=== PATIENT | female | born 1955 | race African-American/Black ===

== ENCOUNTER 2020-09-01 17:41 | Emergency (ER) | payer OTHER ==
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
[2020-09-01 19:10] VITALS: BP 115/62; TEMP 98.3; O2SAT 98
== END 2020-09-01 18:46 | disposition home or self-care (01) ==
LOC: ER 17:41
DX: S29.012A Strain of muscle and tendon of back wall of thorax, initial encounter (principal); V49.50XA Passenger injured in collision with unspecified motor vehicles in traffic accident, initial encounter; E78.00 Pure hypercholesterolemia, unspecified; Z88.0 Allergy status to penicillin; Z88.3 Allergy status to other anti-infective agents; Z88.5 Allergy status to narcotic agent
CPT/HCPCS: 99283

== ENCOUNTER 2020-12-22 11:51 | Emergency (ER) | payer OTHER ==
--- NOTE | 2020-12-22 12:36 | EDPHYS ---
Physician Documentation [facility] Name: Maria Eugenia Garza Age: 65 yrs Sex: Female : 1955 Arrival Date: 12/22/2020 Time: 11:52 Bed 11 Private MD: ED Physician Jonn Martin HPI: 12/22 17:34 This 65 yrs old Black Female presents to ER via Ambulatory with complaints of Finger jmm Injury. 17:34 Onset: The symptoms/episode began/occurred acutely, 1 day(s) ago. Modifying factors: jmm The symptoms are alleviated by nothing, the symptoms are aggravated by nothing. States she cut her right thumb on a kitchen knife. This occurred over a day ago. Patient is not up-to-date on tetanus immunization and requests to have one.. Historical: - Allergies: 12:00 Erythromycin; vg1 12:00 OPIOID ANALGESICS; vg1 12:00 PENICILLINS; vg1 - Home Meds: 12:00 atorvastatin oral [Active]; vg1 - PMHx: 12:00 High Cholesterol; vg1 - Immunization history:: Adult Immunizations up to date, Client reports receiving the 2nd dose of the Covid vaccine, Last tetanus immunization: > 10 years ago. - Social history:: Smoking status: Patient denies any tobacco usage or history of. ROS: 17:34 Constitutional: Negative for fever, chills, and weight loss, Cardiovascular: Negative jmm for chest pain, palpitations, and edema, Respiratory: Negative for shortness of breath, cough, wheezing, and pleuritic chest pain. 17:34 MS/extremity: Positive for injury or acute deformity. 17:34 All other systems are negative. Exam: 17:34 Constitutional: This is a well developed, well nourished patient who is awake, alert, jmm and in no acute distress. Head/Face: atraumatic. Eyes: EOMI, no conjunctival erythema appreciated ENT: Moist Mucus Membranes Neck: Trachea midline, Supple Chest/axilla: Normal chest wall appearance and motion. Cardiovascular: Regular rate and rhythm. No edema appreciated Respiratory: Normal respirations, no respiratory distress appreciated Abdomen/GI: Non distended, soft Back: Normal ROM 17:34 Skin: Healing laceration noted to the right thumb no active bleeding appreciated, no erythema or purulent drainage appreciated from the wound. 17:34 Neuro: Orientation: is normal, Mentation: is normal, Memory: is normal. 17:34 Psych: Behavior/mood is pleasant, cooperative. Vital Signs: 11:54 BP 130 / 69; Pulse 63; Resp 16; Temp 98.7; Pulse Ox 100% ; Weight 72.57 kg; Height 5 vg1 ft. 6 in. (167.64 cm); Pain 0/10; 11:54 Body Mass Index 25.82 (72.57 kg, 167.64 cm) vg1 MDM: 12:09 Patient medically screened. [facility] 12:35 Data reviewed: vital signs, nurses notes. Counseling: I had a detailed discussion with [facility] the patient and/or guardian regarding: the historical points, exam findings, and any diagnostic results supporting the discharge/admit diagnosis, the need for outpatient follow up, to return to the emergency department if symptoms worsen or persist or if there are any questions or concerns that arise at home. Administered Medications: 13:00 Drug: Tetanus-Diphtheria Toxoid Adult 0.5 ml {Administrative Support Technician: [employer]. Exp: ss 07/29/2022. Lot #: [id number]. } Route: IM; Site: left deltoid; 13:37 Follow up: Response: No adverse reaction ss Disposition: 12/23 05:19 Co-signature as Attending Physician, Jonn Martin MD I agree with the assessment and kdr plan of care. Disposition Summary: 12/22/20 12:36 Discharge Ordered Location: Home [facility] Condition: Stable [facility] Diagnosis - Thumb Laceration [facility] Followup: [facility] - With: Private Physician - When: 2 - 3 days - Reason: Recheck today's complaints, Continuance of care, Re-evaluation by your physician Discharge Instructions: - Discharge Summary Sheet [facility] - Nonsutured Laceration Care [facility] Forms: - Medication Reconciliation Form [facility] - Thank You Letter [facility] - Antibiotic Education [facility] - Prescription Opioid Use [facility] Signatures: Jonn Martin MD MD kdr Mickail, Joel, PA PA Stephanie Orlando RN RN Milla Dhaliwal RN RN vg1 Corrections: (The following items were deleted from the chart) 12/22 12:02 12:00 PMHx: High Cholesterol; vg1 vg1
--- NOTE | 2020-12-22 12:36 | ER ---
Nurse's Notes [facility] Name: Maria Eugenia Garza Age: 65 yrs Sex: Female : 1955 Arrival Date: 12/22/2020 Time: 11:52 Bed 11 Private MD: Diagnosis: Thumb Laceration Presentation: 12/22 11:54 Chief complaint: Patient states: Saturday12/19/20, pt cut right thumb with a kitchen vg1 knife while washing dishes. States wants to get a Tetanus shot. Coronavirus screen: Vaccine status: Patient reports receiving the 2nd dose of the covid vaccine. At this time, the client does not indicate any symptoms associated with coronavirus-19. Ebola Screen: Patient negative for fever greater than or equal to 101.5 degrees Fahrenheit, and additional compatible Ebola Virus Disease symptoms. Initial Sepsis Screen: Does the patient meet any 2 criteria? No. Patient's initial sepsis screen is negative. Does the patient have a suspected source of infection? No. Patient's initial sepsis screen is negative. Risk Assessment: Do you want to hurt yourself or someone else? Patient reports no desire to harm self or others. Onset of symptoms was December 19, 2020. 11:54 Method Of Arrival: Ambulatory vg1 11:54 Acuity: KATIANA 4 vg1 Triage Assessment: 12:00 General: Appears in no apparent distress. comfortable, Behavior is calm, cooperative. vg1 Pain: Denies pain. Musculoskeletal: Circulation, motion, and sensation intact. Injury Description: Laceration sustained to Right thumb is clean, not bleeding. Historical: - Allergies: 12:00 Erythromycin; vg1 12:00 OPIOID ANALGESICS; vg1 12:00 PENICILLINS; vg1 - Home Meds: 12:00 atorvastatin oral [Active]; vg1 - PMHx: 12:00 High Cholesterol; vg1 - Immunization history:: Adult Immunizations up to date, Client reports receiving the 2nd dose of the Covid vaccine, Last tetanus immunization: > 10 years ago. - Social history:: Smoking status: Patient denies any tobacco usage or history of. Screenin:09 Abuse screen: Denies threats or abuse. Denies injuries from another. Nutritional ss screening: No deficits noted. Tuberculosis screening: Never had TB. Fall Risk None identified. Assessment: 13:09 General: Appears in no apparent distress. comfortable, Behavior is calm, cooperative. ss Neuro: Level of Consciousness is awake, alert, obeys commands, Oriented to person, place, time, situation. Cardiovascular: Pulses are palpable in right radial artery and left radial artery. Respiratory: Airway is patent Respiratory effort is even, unlabored, Respiratory pattern is regular, symmetrical. Derm: Skin is pink, warm \T\ dry. normal. Musculoskeletal: Circulation, motion, and sensation intact. Range of motion: intact in all extremities, Swelling absent. Injury Description: superficial laceration noted to pad of R thumb. Vital Signs: 11:54 BP 130 / 69; Pulse 63; Resp 16; Temp 98.7; Pulse Ox 100% ; Weight 72.57 kg; Height 5 vg1 ft. 6 in. (167.64 cm); Pain 0/10; 11:54 Body Mass Index 25.82 (72.57 kg, 167.64 cm) vg1 ED Course: 11:52 Patient arrived in ED. ds1 12:00 Triage completed. 1 12:02 Arm band placed on. 1 12:06 Stanislaw Ramirez PA is PHCP. [facility] 12:06 Jonn Martin MD is Attending Physician. [facility] 12:58 Stephanie Garsia RN is Primary Nurse. ss 13:09 Patient has correct armband on for positive identification. ss 13:09 No provider procedures requiring assistance completed. Patient did not have IV access ss during this emergency room visit. Wound care: to laceration located on palmar aspect of distal phalanx of right thumb was cleaned with soap and water. Administered Medications: 13:00 Drug: Tetanus-Diphtheria Toxoid Adult 0.5 ml {Tank Officer: [employer]. Exp: ss 07/29/2022. Lot #: [id number]. } Route: IM; Site: left deltoid; 13:37 Follow up: Response: No adverse reaction ss Outcome: 12:36 Discharge ordered by . [facility] 13:37 Discharged to home ambulatory. ss 13:37 Condition: good 13:37 Discharge instructions given to patient, Instructed on discharge instructions, follow up and referral plans. Demonstrated understanding of instructions, follow-up care. 13:37 Patient left the ED. ss Signatures: Stanislaw Ramirez PA PA [facility] Lizette Garza 1 Smirch, Stephanie, Milla Celis RN, RN RN vg1 Corrections: (The following items were deleted from the chart) 12:02 12:00 PMHx: High Cholesterol; vg1 vg1
[2020-12-22] MEDS ORDERED: TETANUS & DIPHTHERIA TOX,ADULT 0.5 ML VIAL ONE (13:23)
[2020-12-22 14:04] VITALS: BP 130/69; TEMP 98.7; O2SAT 100
== END 2020-12-22 13:37 | disposition home or self-care (01) ==
LOC: ER 11:51
DX: S61.011A Laceration without foreign body of right thumb without damage to nail, initial encounter (principal); W26.0XXA Contact with knife, initial encounter; E78.00 Pure hypercholesterolemia, unspecified; Z88.0 Allergy status to penicillin; Z88.3 Allergy status to other anti-infective agents; Z88.5 Allergy status to narcotic agent; Z23 Encounter for immunization
CPT/HCPCS: 90471; 90714; 99283